=== PATIENT | female | born 2000 | race Caucasian/White ===

== ENCOUNTER 2020-08-19 17:25 | Emergency (ER) | payer MEDICAID, SELFPAY ==
[2020-08-19 17:26] VITALS: BP 136/70; PULSE 91; RESP 18; TEMP 36.3; O2SAT 98; BMI 25.7
[2020-08-19 17:37] VITALS: RESP 16
[2020-08-19 18:38] LABS: Absolute Neutrophil Count 4.9 X10^3/uL (2.0-7.7); Basophil# 0.07 X10^3/uL; Basophil% 0.8 % (0-1); Hematocrit 39.4 % (37-47); Hemoglobin 12.4 g/dL (12.0-15.0); Lymphocyte % 21.7 % (19-41); Mean Corp Hgb Conc 31.5 g/dL (32-36); Mean Corpuscular Hgb 26.7 pg (27.0-32.0); Mean Corpuscular Volume 84.7 fL (81-99); Mean Platelet Vol. 12.5 fl (6.2-12.0); Monocyte% 12.1 % (0-10); NRBC Flagged by Analyzer 0 % (0-5); Neutrophil # 4.91 X10^3/uL (2.7-7.7); Neutrophil % 59.3 % (47-70); Platelet Count 302 K/mm3 (150-450); RBC Distribution Width CV 13.9 % (11.6-14.6); RBC Distribution Width SD 43.1 fl (35.1-43.9); Red Blood Count 4.65 M/mm3 (4.2-5.4); White Blood Count 8.3 K/mm3 (4.4-11.0)
[2020-08-19] MEDS: 0.9% Normal Saline 1,000 ML 1000 ML IV (18:42)
[2020-08-19] MEDS: Ondansetron 4 MG/2 ML Vial IV (18:42)
[2020-08-19 18:55] LABS: ALB/GLOB Ratio 1.1 RATIO (0.9-2.4); AST(SGOT) 31 U/L (15-37); Alanine Aminotransfer ALT/SGPT 27 U/L (13-56); Alkaline Phosphatase 74 U/L (45-117); Anion Gap 5 (5-15); BUN 10 mg/dL (7-18); Calcium,Total 9.1 mg/dL (8.5-10.1); Chloride 106 mmol/L (98-107); Creatinine, Serum 0.72 mg/dL (0.55-1.02); EST Glomerular Filtration Rate 111 mL/min (>60); Est Glom Filt Rate - Afr Amer 134 mL/min (>60); Estimated Creatinine Clearance 108.52 ml/min; Globulin 3.8 g/dL (2.2-4.2); Glucose 95 mg/dL (74-106); Potassium 4.4 mmol/L (3.5-5.1); Protein, Total 7.8 g/dL (6.4-8.2); Sodium Level 139 mmol/L (136-145)
--- NOTE | 2020-08-19 19:20 | EDS_ITS ---
HPI History of Present Illness Chief Complaint: Allergic Reaction Narrative Narrative: Patient presents with what she thinks is an allergic reaction, she has facial flushing nausea and feels very lightheaded after being out in the heat and playing with her dog. She has no shortness of breath no cough no swelling of the throat. She has no fever chills, she is complaining of dry throat. PFSH PFSH Home Medications fluoxetine [Prozac] 20 mg PO DAILY 08/19/20 [History Last Taken Unknown] Allergy/AdvReac Type Severity Reaction Status Date / Time bismuth subsalicylate AdvReac Vomiting Verified 08/19/20 17:28 [From Pepto-Bismol] Social History Smoking Status: Never smoker ROS ROS ED ROS Narrative Past medical history: Reviewed Medications: Reviewed Social history: Noncontributory Review of systems: All systems negative except as indicated General: No fever. Lightheaded as in HPI Eyes: No visual changes ENT: No upper airway congestion, normal voice. Neck: No neck pain Cardiovascular: No chest pain Respiratory: No shortness of breath or cough Gastrointestinal: No abdominal pain. There is nausea as in HPI Genitourinary: No dysuria Musculoskeletal: Denies myalgias no difficulty with ambulation Skin: No rash Neurological: No memory loss, confusion or any focal weakness Psych: No recent behavioral changes Hematologic: No easy bleeding or easy bruising EXAM Physical Exam Narrative Exam Narrative: Physical exam General: Well nourished, Well developed, No Acute Distress Head: Normocephalic, Atraumatic Eyes: Conjunctiva not pale ENT: Somewhat dry mucous membranes Neck: Supple, Nontender, No lymphadenopathy Cardiovascular: Regular rate, Regular rhythm Respiratory: No distress, CTA bilaterally Abdomen: Soft, Nontender, Nondistended Back: Nontender, Normal Inspection. Negative for: CVA tenderness Extremities: Nontender, No edema Skin: Normal color, No rash Neurological: Alert, Normal Strength, Normal Sensation Psychological: Normal affect Const Vital Signs: 08/19/20 17:26 08/19/20 17:37 Temperature 97.3 F L Temperature Source Temporal Pulse Rate 91 Respiratory Rate 18 16 Blood Pressure 136/70 H Blood Pressure Mean 92 Pulse Ox 98 Oxygen Delivery Method Room Air MDM MDM MDM Narrative Medical decision making narrative: Patient has an unremarkable work-up she is given IV fluids and significantly improved she appears well, she had some slight facial flushing but this is gone. I believe this is a heat injury I will discharge in stable condition. Lab Data Labs: Laboratory Results - last 24 hr 08/19/20 08/19/20 18:25 18:25 WBC 8.3 RBC 4.65 Hgb 12.4 Hct 39.4 MCV 84.7 MCH 26.7 L MCHC 31.5 L RDW Std Deviation 43.1 RDW Coeff of Haleigh 13.9 Plt Count 302 MPV 12.5 H Immature Gran % (Auto) 0.100 Neut % (Auto) 59.3 Lymph % (Auto) 21.7 [place] % (Auto) 12.1 H Eos % (Auto) 6.0 H Baso % (Auto) 0.8 Absolute Neuts (auto) 4.9 Absolute Lymphs (auto) 1.80 Nucleated RBC % 0 Sodium 139 Potassium 4.4 Chloride 106 Carbon Dioxide 28.0 Anion Gap 5 BUN 10 Creatinine 0.72 Estim Creat Clear Calc 108.52 Est GFR (MDRD) Af Amer 134 Est GFR (MDRD) Non-Af 111 BUN/Creatinine Ratio 14.0 Glucose 95 Calcium 9.1 Total Bilirubin 0.40 AST 31 ALT 27 Alkaline Phosphatase 74 Total Protein 7.8 Albumin 4.0 Globulin 3.8 Albumin/Globulin Ratio 1.1 Discharge Plan Triage Chief Complaint: Allergic Reaction ED Provider: Joe Tony Dx/Rx/DC Orders Clinical Impression: Heat exhaustion Instructions: ED Heat Exhaustion Prescriptions: No Action fluoxetine [Prozac] 20 mg Capsule 20 mg PO DAILY RF: 0 Primary Care Provider: Care Physician,No Primary Referrals: Care Physician,No Primary [Primary Care Provider] - 2 Days Disposition Disposition: Home, Self Care
[2020-08-19 19:24] VITALS: PULSE 80; RESP 16; O2SAT 98
== END 2020-08-19 19:53 | disposition home or self-care (01) ==
PROVIDERS: Emergency Provider Emergency Medicine
DX: T67.5XXA Heat exhaustion, unspecified, initial encounter (principal); X58.XXXA Exposure to other specified factors, initial encounter; Z79.899 Other long term (current) drug therapy
CPT/HCPCS: 80053; 85025; 96374; 99284; J7030; A4216; J2405